=== PATIENT | male | born 1990 | race Caucasian/White ===

== ENCOUNTER 2018-02-09 13:26 | Emergency (ER) | payer OTHER ==
[~2018-02-09] VITALS: Ht 188 cm; Wt 92.0 kg
[~2018-02-09 13:26] MED LIST: VENTOLIN HFA18 GM IH; ZITHROMAX Z-PA250 MG PO
[2018-02-09] MEDS ORDERED: KEFLEX500 MG PO (17:52)
[2018-02-09] MEDS ORDERED: MOTRIN600 MG PO (17:52)
[2018-02-09] MEDS ORDERED: BACTRIM,SEPT1 TABLET PO (17:52)
[2018-02-09 18:01] VITALS: BP 125/75
== END 2018-02-09 18:02 | disposition home or self-care (01) ==
LOC: EME 13:26
PROC: 0H97XZX Drainage of Abdomen Skin, External Approach, Diagnostic (ICD-10-PCS; principal; 2018-02-09)
DX: L02.211 Cutaneous abscess of abdominal wall (principal)
CPT/HCPCS: 76705; 87070; 87075; 87205; 99281; 99284